=== PATIENT | female | born 1990 | race Asian ===

== ENCOUNTER 2017-11-19 03:12 | Emergency (ER) | payer MEDICARE ==
[~2017-11-19] VITALS: Ht 162.6 cm; Wt 43.5 kg
[2017-11-19 03:25] VITALS: BP_SYST 125
--- NOTE | 2017-11-19 03:28 | NUR ---
Placed in room 07 . Placed on cardiac sonographer, blood pressure machine and pulse oximeter. To gown for exam. Side rails up. Report given to PORTER Chávez.
--- NOTE | 2017-11-19 03:30 | NUR ---
Patient AAO x4, sitting in bed c/o abd pain since 2229 last night with N/V/D. Patient states she may have eaten something contaminated with dairy. Patient is lactose intolerant with HX of gastritis. Abd pain 9/10 to upper mid abdomen. No acute distress noted. Afebrile at this time. Will continue to monitor.
--- NOTE | 2017-11-19 03:35 | NUR ---
ER MD Calles at bedside for medical evaluation.
[2017-11-19] MEDS ORDERED: ONDANSETRON HCL 4 MG/2 ML VIAL IVP ONE (03:45)
[2017-11-19] MEDS ORDERED: NACL 0.9% 1,000 ML IV ONE (03:45)
[2017-11-19] MEDS ORDERED: PANTOPRAZOLE SODIUM 40 MG/VIAL (PROTONIX) IVP ONE (03:45)
[2017-11-19] MEDS ORDERED: KETOROLAC TROMETHAMINE 15 MG VIAL IVP ONE (03:45)
--- NOTE | 2017-11-19 03:50 | NUR ---
# 20 gauge angiocath placed to LAC. Use of asceptic technique. Opsite placed over site. Blood return noted. Blood for lab drawn from site. Flushed with 10 cc of normal saline. No evidence of infiltration noted. Patient tolerated well.
[2017-11-19 04:20] LABS: CALCIUM 9.2 mg/dL (8.4-11.0); CREATININE 0.53 mg/dL (0.55-1.30); POTASSIUM 3.3 mmol/L (3.5-5.1)
[2017-11-19 04:21] LABS: BASOPHILS # (AUTO) 0.1 K/uL (0.0-0.2); BASOPHILS % (AUTO) 1.5 % (0.0-2.0); EOSINOPHILS # (AUTO) 0.3 K/uL (0.0-0.4); EOSINOPHILS % (AUTO) 3.8 % (0.0-4.0); HEMATOCRIT 44.6 % (36-48); HEMOGLOBIN 15.1 g/dL (12.0-16.0); LYMPHOCYTES # (AUTO) 1.4 K/uL (1.0-5.5); LYMPHOCYTES % (AUTO) 15.6 % (20.5-51.5); MEAN CORPUSCULAR HEMOGLOBIN 30 pg (27-31); MEAN CORPUSCULAR HGB CONC 34 % (32-36); MEAN CORPUSCULAR VOLUME 89 fL (79.0-98.0); MONOCYTES # (AUTO) 0.2 K/uL (0.0-1.0); MONOCYTES % (AUTO) 1.9 % (1.7-9.3); NEUTROPHILS % (AUTO) 77.2 % (40.0-70.0); PLATELET COUNT (AUTO) 378 K/uL (130-430); RED BLOOD CELL COUNT(AUTO) 5.01 MIL/uL (4.2-6.2); RED CELL DISTRIBUTION WIDTH 12.3 % (9.0-15.0)
[2017-11-19 04:25] LABS: ALBUMIN 4.2 g/dL (3.4-4.8); TOTAL BILIRUBIN 0.6 mg/dL (0.0-1.0)
--- NOTE | 2017-11-19 04:30 | NUR ---
No adverse reactions noted after medication administration. Will continue to monitor.
[2017-11-19 05:07] VITALS: BP_SYST 100
--- NOTE | 2017-11-19 05:07 | NUR ---
Patient given written and verbal discharge instructions and verbalizes understanding. ER MD discussed with patient the results and treatment provided. Patient in stable condition. ID arm band removed. IV catheter removed intact and dressing applied, no active bleeding. Rx of Zofran given. Patient educated on pain management and to follow up with PMD. Pain Scale 0/10. Opportunity for questions provided and answered. Medication side effect fact sheet provided.
== END 2017-11-19 05:07 | disposition home or self-care (01) ==
LOC: SED 03:12
DX: K52.9 Noninfective gastroenteritis and colitis, unspecified (principal)
CPT/HCPCS: 36415; 80053; 85025; 96361; 96374; 96375; 99284; C9113; J1885; J2405; J7030